=== PATIENT | female | born 1965 | race Caucasian/White ===

== ENCOUNTER 2016-09-05 03:28 | Emergency (ER) | payer MEDICAID ==
[~2016-09-05] VITALS: Ht 165.1 cm; Wt 94.8 kg
[~2016-09-05 03:28] MED LIST: ALBU0.084; ALBU18; CARI-277 PO; GABA100C; LAM100T; LORA-622 PO; MONT10TA23; NOR10T; PALI234I; RIVA20TA PO; ZOLP-158
[2016-09-05] MEDS ORDERED: methylPREDNISolone SOD SUCC 125 MG/2 ML VL IV ONE (04:00)
[2016-09-05 04:44] LABS: Basophils # (auto) 0.1 uL; Basophils % (auto) 0.4 % (0.0-2.0); Eosinophils # (auto) 0.3 uL; Eosinophils % (auto) 2.4 % (0.0-7.0); Hematocrit 32.7 % (36.0-46.0); Hemoglobin 10.8 g/dL (12.2-16.2); Lymphocytes # (auto) 2.4 uL; Lymphocytes % (auto) 17.6 % (10.0-50.0); Mean Corpuscular Hemoglobin 31.3 pg (28.0-32.0); Mean Corpuscular Hgb Conc. 33.1 g/dL (32.0-36.0); Mean Corpuscular Volume 94.3 fL (80.0-100.0); Mean Platelet Volume 7.4 fL (7.4-10.4); Monocytes # (auto) 1.1 uL; Monocytes % (auto) 8.1 % (0.0-12.0); Neutrophils # (auto) 9.7 uL; Neutrophils % (auto) 71.5 % (37.0-80.0); Platelet Count (auto) 269 10^3/uL (140-450); Red Cell Distribution Width 15.1 % (11.6-16.0); White Blood Cell 13.6 10^3/uL (4.4-10.8)
[2016-09-05 04:53] LABS: Albumin 2.9 g/dL (3.4-5.0); BUN/Creatinine Ratio 11.7; Calcium 8.5 mg/dL (8.5-10.1); Potassium 3.7 mmol/L (3.5-5.1)
[2016-09-05 04:56] LABS: Bilirubin, Total 0.3 mg/dL (0.2-1.0); Total Protein 6.9 g/dL (6.4-8.2)
[2016-09-05 05:00] LABS: INR 1.01 (0.9-1.15); Partial Thromboplastin Time 30.1 sec (22.64-33.71); Prothrombin Time 10.4 sec (9.37-12.3)
[2016-09-05 05:10] LABS: B-Type Natriuretic Peptide 38.78 pg/mL (0-100)
[2016-09-05 05:42] VITALS: BP 93/68
== END 2016-09-05 06:18 | disposition home or self-care (01) ==
LOC: ER 03:35
DX: J20.9 Acute bronchitis, unspecified (principal); D72.829 Elevated white blood cell count, unspecified; J44.9 Chronic obstructive pulmonary disease, unspecified; J45.909 Unspecified asthma, uncomplicated; M54.9 Dorsalgia, unspecified; G89.29 Other chronic pain; F17.210 Nicotine dependence, cigarettes, uncomplicated
CPT/HCPCS: 36415; 71010; 80053; 83880; 84484; 85025; 85379; 85610; 85730; 93005; 96374; 99285; J2930

== ENCOUNTER 2016-10-06 14:49 | Inpatient (IN) | payer MEDICAID ==
[~2016-10-06] VITALS: Ht 167.6 cm; Wt 95.9 kg
[2016-10-06 15:53] LABS: Albumin 3.4 g/dL (3.4-5.0); BUN/Creatinine Ratio 11.3; Bilirubin, Total 0.3 mg/dL (0.2-1.0); Calcium 8.9 mg/dL (8.5-10.1); Total Protein 6.7 g/dL (6.4-8.2)
[2016-10-06] MEDS ORDERED: ALBUTEROL SULF 2.5 MG/0.5ML(0.5%) NEB SOLN NEB STA (17:04)
[2016-10-06] MEDS ORDERED: IPRATROPIUM BROM 0.5 MG/2.5ML INH SOL NEB ONE (17:15)
[2016-10-06] MEDS ORDERED: cefTRIAXone 1GM/50ML D5W 50 ML IV ONE (17:15)
[2016-10-06] MEDS ORDERED: methylPREDNISolone SOD SUCC 125 MG/2 ML VL IV ONE (17:15)
[2016-10-06 17:33] LABS: Urine Bilirubin Negative (Negative); Urine Blood Negative /uL (Negative); Urine Color Yellow (Yellow); Urine Glucose Normal (Normal); Urine Ketone Negative (Negative); Urine Mucus FEW (None Seen); Urine Nitrite Negative (Negative); Urine RBC 1 /hpf (0 - 4); Urine Squamous Epithelial Cell FEW /hpf (<5); Urine Urobilinogen Normal (Negative)
[2016-10-06] MEDS ORDERED: HYDROcodone-ACET 10/325MG TAB PO ONE (18:00)
[2016-10-06 18:17] LABS: Basophils # (auto) 0.1 uL; Basophils % (auto) 0.6 % (0.0-2.0); Eosinophils # (auto) 0.6 uL; Eosinophils % (auto) 6.9 % (0.0-7.0); Hematocrit 39.9 % (36.0-46.0); Hemoglobin 12.5 g/dL (12.2-16.2); Lymphocytes # (auto) 2.6 uL; Lymphocytes % (auto) 31.3 % (10.0-50.0); Mean Corpuscular Hemoglobin 29.5 pg (28.0-32.0); Mean Corpuscular Hgb Conc. 31.2 g/dL (32.0-36.0); Mean Corpuscular Volume 94.3 fL (80.0-100.0); Mean Platelet Volume 8.3 fL (7.4-10.4); Monocytes # (auto) 0.6 uL; Monocytes % (auto) 7.3 % (0.0-12.0); Neutrophils # (auto) 4.5 uL; Neutrophils % (auto) 53.9 % (37.0-80.0); Platelet Count (auto) 340 10^3/uL (140-450); Red Cell Distribution Width 16.1 % (11.6-16.0); White Blood Cell 8.4 10^3/uL (4.4-10.8)
[2016-10-06 18:34] LABS: B-Type Natriuretic Peptide 6.47 pg/mL (0-100)
[2016-10-06 19:20] LABS: Temperature: 21.9 C (20.0-25.0)
[2016-10-06] MEDS ORDERED: ONDANSETRON HCL 4 MG/2 ML VIAL IV PRN (21:00)
[2016-10-06] MEDS ORDERED: ACETAMINOPHEN 325 MG TAB PO PRN (21:00)
[2016-10-06 21:15] VITALS: BP 126/78
[2016-10-06] MEDS: FAMOTIDINE 20 MG TAB PO SCH (21:24)
[2016-10-06] MEDS: ENOXAPARIN SOD 40 MG/0.4 ML SYRINGE SC SCH (21:24)
[2016-10-06] MEDS: methylPREDNISolone SOD SUCC 125 MG/2 ML VL IV SCH (21:25)
[2016-10-06 22:00] VITALS: BP 128/84
[2016-10-06] MEDS: HYDROcodone-ACET 5/325MG TAB PO PRN (22:38)
[2016-10-06] MEDS: ALBUTEROL SULF 2.5 MG/0.5ML(0.5%) NEB SOLN NEB PRN (23:11)
[2016-10-06] MEDS: IPRATROPIUM BROM 0.5 MG/2.5ML INH SOL NEB PRN (23:11)
[2016-10-07 05:00] VITALS: BP 111/66
[2016-10-07 06:57] LABS: Basophils # (auto) 0.1 uL; Basophils % (auto) 1.8 % (0.0-2.0); Eosinophils # (auto) 0 uL; Hemoglobin 12.6 g/dL (12.2-16.2); Lymphocytes # (auto) 1.2 uL; Lymphocytes % (auto) 15.4 % (10.0-50.0); Mean Corpuscular Hemoglobin 29.7 pg (28.0-32.0); Mean Corpuscular Hgb Conc. 31.4 g/dL (32.0-36.0); Mean Corpuscular Volume 94.6 fL (80.0-100.0); Mean Platelet Volume 7.6 fL (7.4-10.4); Monocytes # (auto) 0 uL; Monocytes % (auto) 0.5 % (0.0-12.0); Neutrophils # (auto) 6.5 uL; Neutrophils % (auto) 82.3 % (37.0-80.0); Platelet Count (auto) 302 10^3/uL (140-450); White Blood Cell 7.8 10^3/uL (4.4-10.8)
[2016-10-07 07:09] LABS: Albumin 3.3 g/dL (3.4-5.0); BUN/Creatinine Ratio 13.4; Bilirubin, Total 0.2 mg/dL (0.2-1.0); Calcium 8.9 mg/dL (8.5-10.1); Potassium 4.6 mmol/L (3.5-5.1); Total Protein 7.1 g/dL (6.4-8.2)
[2016-10-07] MEDS: ALBUTEROL SULF 2.5 MG/0.5ML(0.5%) NEB SOLN NEB PRN (08:09)
[2016-10-07] MEDS: IPRATROPIUM BROM 0.5 MG/2.5ML INH SOL NEB PRN (08:09)
[2016-10-07 08:35] VITALS: BP 126/74
[2016-10-07] MEDS: ENOXAPARIN SOD 40 MG/0.4 ML SYRINGE SC SCH (09:27)
[2016-10-07] MEDS: methylPREDNISolone SOD SUCC 125 MG/2 ML VL IV SCH (09:27)
[2016-10-07] MEDS: HYDROcodone-ACET 5/325MG TAB PO PRN ×3 (09:49→21:26)
[2016-10-07] MEDS: FAMOTIDINE 20 MG TAB PO SCH ×2 (11:50→21:26)
[2016-10-07 12:28] VITALS: BP 101/64
[2016-10-07 16:52] VITALS: BP 133/86
[2016-10-07] MEDS ORDERED: methylPREDNISolone SOD SUCC 40 MG/ML VL IV SCH (19:53)
[2016-10-07 20:00] VITALS: BP 139/69
[2016-10-07] MEDS: NICOTINE 21MG/24 HR TOPICAL PATCH TD SCH (21:27)
[2016-10-07] MEDS: CARISOPRODOL 350 MG TAB PO SCH (21:42)
[2016-10-07] MEDS: lamoTRIgine 100 MG TAB PO SCH (21:42)
[2016-10-07] MEDS: ZOLPIDEM TARTRATE 5 MG TAB PO PRN (21:44)
[2016-10-07 22:07] VITALS: BP 139/69
[2016-10-08] MEDS: methylPREDNISolone SOD SUCC 40 MG/ML VL IV SCH ×4 (02:46→22:08)
[2016-10-08 05:12] VITALS: BP 132/87
[2016-10-08 06:17] LABS: Basophils # (auto) 0.3 uL; Basophils % (auto) 1.3 % (0.0-2.0); Eosinophils # (auto) 0 uL; Eosinophils % (auto) 0.2 % (0.0-7.0); Hematocrit 39.2 % (36.0-46.0); Hemoglobin 12.6 g/dL (12.2-16.2); Lymphocytes # (auto) 1.2 uL; Lymphocytes % (auto) 6.1 % (10.0-50.0); Mean Corpuscular Hemoglobin 30.4 pg (28.0-32.0); Mean Platelet Volume 7.5 fL (7.4-10.4); Monocytes # (auto) 0.1 uL; Monocytes % (auto) 0.6 % (0.0-12.0); Neutrophils # (auto) 18.3 uL; Neutrophils % (auto) 91.8 % (37.0-80.0); Platelet Count (auto) 331 10^3/uL (140-450); Red Cell Distribution Width 15.1 % (11.6-16.0); SUSPECT VIEW TRANSMISSION; White Blood Cell 19.9 10^3/uL (4.4-10.8)
[2016-10-08 06:41] LABS: Potassium 4.7 mmol/L (3.5-5.1)
[2016-10-08 06:45] LABS: Albumin 3.4 g/dL (3.4-5.0); BUN/Creatinine Ratio 24.1; Calcium 8.9 mg/dL (8.5-10.1)
[2016-10-08 06:48] LABS: Bilirubin, Total 0.2 mg/dL (0.2-1.0)
[2016-10-08] MEDS: ALBUTEROL SULF 2.5 MG/0.5ML(0.5%) NEB SOLN NEB PRN ×3 (09:01→22:45)
[2016-10-08] MEDS: IPRATROPIUM BROM 0.5 MG/2.5ML INH SOL NEB PRN ×3 (09:01→22:45)
[2016-10-08 09:29] VITALS: BP 126/73
[2016-10-08] MEDS: CARISOPRODOL 350 MG TAB PO SCH ×2 (10:19→22:08)
[2016-10-08] MEDS: ENOXAPARIN SOD 40 MG/0.4 ML SYRINGE SC SCH (10:19)
[2016-10-08] MEDS: FAMOTIDINE 20 MG TAB PO SCH ×2 (10:19→22:08)
[2016-10-08] MEDS: NICOTINE 21MG/24 HR TOPICAL PATCH TD SCH (10:19)
[2016-10-08 12:24] VITALS: BP 116/76
[2016-10-08 16:13] VITALS: BP 120/87
[2016-10-08] MEDS: HYDROcodone-ACET 5/325MG TAB PO PRN (18:57)
[2016-10-08 20:00] VITALS: BP 109/71
[2016-10-08 22:00] VITALS: BP 109/71
[2016-10-08] MEDS: ZOLPIDEM TARTRATE 5 MG TAB PO PRN (22:08)
[2016-10-08] MEDS: lamoTRIgine 100 MG TAB PO SCH (22:08)
[2016-10-09 05:06] VITALS: BP 116/75
[2016-10-09] MEDS: methylPREDNISolone SOD SUCC 40 MG/ML VL IV SCH ×2 (05:59→14:00)
[2016-10-09 06:41] LABS: DEFINITIVE VIEW TRANSMISSION; Hematocrit 39.8 % (36.0-46.0); Hemoglobin 12.4 g/dL (12.2-16.2); Mean Corpuscular Hemoglobin 29.5 pg (28.0-32.0); Mean Corpuscular Hgb Conc. 31.2 g/dL (32.0-36.0); Mean Corpuscular Volume 94.5 fL (80.0-100.0); Mean Platelet Volume 7.4 fL (7.4-10.4); Platelet Count (auto) 314 10^3/uL (140-450); SUSPECT VIEW TRANSMISSION; White Blood Cell 18.2 10^3/uL (4.4-10.8)
[2016-10-09 07:05] LABS: Albumin 3.1 g/dL (3.4-5.0); BUN/Creatinine Ratio 21.9; Calcium 8.7 mg/dL (8.5-10.1); Potassium 4.1 mmol/L (3.5-5.1)
[2016-10-09 07:07] LABS: Bilirubin, Total 0.1 mg/dL (0.2-1.0); Total Protein 6.7 g/dL (6.4-8.2)
[2016-10-09 07:12] LABS: Metamyelocytes % 0; Myelocytes % 0; Promyelocytes % 0; Reactive Lymphocytes 0
[2016-10-09 08:30] VITALS: BP 124/82
[2016-10-09] MEDS: FAMOTIDINE 20 MG TAB PO SCH (09:26)
[2016-10-09] MEDS: CARISOPRODOL 350 MG TAB PO SCH (09:26)
[2016-10-09] MEDS: NICOTINE 21MG/24 HR TOPICAL PATCH TD SCH (09:26)
[2016-10-09] MEDS: ENOXAPARIN SOD 40 MG/0.4 ML SYRINGE SC SCH (09:26)
[2016-10-09 10:43] LABS: Platelet Estimate Adequate
[2016-10-09] MEDS: HYDROcodone-ACET 5/325MG TAB PO PRN (12:35)
[2016-10-09 13:00] VITALS: BP 129/79
== END 2016-10-09 15:50 | disposition home or self-care (01) | DRG 140 ==
LOC: EDUNIT# 14:49 → ER 14:51 → OVERFLOW 14:52 → WEST WING 21:56
PROVIDERS: ADMIT Internal Medicine; ATTEND Internal Medicine
DX: J44.1 Chronic obstructive pulmonary disease with (acute) exacerbation (principal); J96.20 Acute and chronic respiratory failure, unspecified whether with hypoxia or hypercapnia; Z99.81 Dependence on supplemental oxygen; E88.09 Other disorders of plasma-protein metabolism, not elsewhere classified; E66.9 Obesity, unspecified; F41.9 Anxiety disorder, unspecified; F17.210 Nicotine dependence, cigarettes, uncomplicated; J45.909 Unspecified asthma, uncomplicated; Z80.1 Family history of malignant neoplasm of trachea, bronchus and lung; Z82.49 Family history of ischemic heart disease and other diseases of the circulatory system; Z80.9 Family history of malignant neoplasm, unspecified; Z88.6 Allergy status to analgesic agent; Z68.34 Body mass index [BMI] 34.0-34.9, adult
CPT/HCPCS: 36415; 71010; 80053; 81001; 83605; 83735; 83880; 84484; 85007; 85025; 85027; 87040; 93005; 94640; 94761; 96365; 96375; J0696

== ENCOUNTER 2018-07-06 19:04 | Emergency (ER) | payer MEDICAID ==
[~2018-07-06] VITALS: Ht 172.7 cm; Wt 92.5 kg
[~2018-07-06 19:04] MED LIST changes: -ALBU0.084; -GABA100C
[2018-07-06 19:07] VITALS: BP 128/92
[2018-07-06 20:07] LABS: Basophils # (auto) 0.1 uL; Basophils % (auto) 1.3 % (0.0-2.0); Eosinophils # (auto) 0.6 uL; Eosinophils % (auto) 7.1 % (0.0-7.0); Hematocrit 39.5 % (36.0-46.0); Hemoglobin 13.3 g/dL (12.2-16.2); Lymphocytes # (auto) 3.5 uL; Lymphocytes % (auto) 42.3 % (10.0-50.0); Mean Corpuscular Hgb Conc. 33.6 g/dL (32.0-36.0); Mean Corpuscular Volume 95.3 fL (80.0-100.0); Monocytes # (auto) 0.8 uL; Neutrophils # (auto) 3.4 uL; Neutrophils % (auto) 40.3 % (37.0-80.0); Nucleated Red Blood Cells % 0.1 %; Platelet Count (auto) 299 10^3/uL (140-450); Red Blood Cells 4.15 10^6/uL (4.0-5.20); Red Cell Distribution Width 13.9 % (11.8-14.3); White Blood Cell 8.4 10^3/uL (4.4-10.8)
[2018-07-06 20:21] LABS: Albumin 3.4 g/dL (3.4-5.0); Anion Gap 10 (5-15); Blood Urea Nitrogen 8 mg/dL (7-18); Calcium 8.5 mg/dL (8.5-10.1); Carbon Dioxide 27 mmol/L (21-32); Chloride 104 mmol/L (98-107); Glucose 107 mg/dL (74-106); Potassium 3.5 mmol/L (3.5-5.1); Sodium 141 mmol/L (136-145)
[2018-07-06 20:24] LABS: Alanine Aminotransferase 17 U/L (13-56); Aspartate Aminotransferase 13 U/L (15-37); BUN/Creatinine Ratio 8.5; GFR African American 80 mL/min; GFR Non-African American 66 mL/min
[2018-07-06 20:29] LABS: Alkaline Phosphatase 63 U/L (45-117); Bilirubin, Total 0.2 mg/dL (0.2-1.0); Total Protein 6.9 g/dL (6.4-8.2)
== END 2018-07-06 22:29 | disposition left against medical advice (07) ==
LOC: ER 19:06
DX: R20.0 Anesthesia of skin (principal); Z53.21 Procedure and treatment not carried out due to patient leaving prior to being seen by health care provider
CPT/HCPCS: 36415; 71046; 80053; 84484; 85025; 93005

== ENCOUNTER 2020-06-22 03:24 | Inpatient (IN) | payer OTHER, MEDICAID ==
[~2020-06-22] VITALS: Ht 172.7 cm; Wt 72.8 kg
[2020-06-22] MEDS ORDERED: CEFTRIAXONE SODIUM 2 GM in D5W 5% 50 ML IV ONE ×2 (04:15→05:00)
[2020-06-22] MEDS ORDERED: diphenhdrAMINE HCL 50 MG/1 ML VL IV ONE (04:15)
[2020-06-22] MEDS ORDERED: methylPREDNISolone SOD SUCC 125 MG/2 ML VL IV ONE (04:15)
[2020-06-22 04:40] LABS: Basophils # (auto) 0 10 ^3/uL (0-0.2); Basophils % (auto) 0.5 % (0.0-2.0); Eosinophils # (auto) 0.6 10 ^3/uL (0-0.8); Eosinophils % (auto) 6.1 % (0.0-7.0); Hematocrit 38.3 % (36.0-46.0); Lymphocytes # (auto) 2.8 10 ^3/uL (0.4-5.4); Lymphocytes % (auto) 27.4 % (10.0-50.0); Mean Corpuscular Hemoglobin 32.2 pg (28.0-32.0); Mean Corpuscular Hgb Conc. 33.9 g/dL (32.0-36.0); Mean Corpuscular Volume 94.8 fL (80.0-100.0); Monocytes # (auto) 0.8 10 ^3/uL (0-1.3); Neutrophils # (auto) 5.8 10 ^3/uL (1.6-8.6); Nucleated Red Blood Cells % 0.1 %; Platelet Count (auto) 322 10^3/uL (140-450); Red Blood Cells 4.04 10^6/uL (4.0-5.20); Red Cell Distribution Width 14.5 % (11.8-14.3); White Blood Cell 10.1 10^3/uL (4.4-10.8)
[2020-06-22 04:51] LABS: Chloride 105 mmol/L (98-107); Potassium 3.9 mmol/L (3.5-5.1); Sodium 139 mmol/L (136-145)
[2020-06-22 04:55] LABS: INR 0.96 (0.9-1.15); Partial Thromboplastin Time 29.6 sec (23.0-31.2)
[2020-06-22] MEDS ORDERED: cefTRIAXone SOD 1,000 MG VL ONE (05:01)
[2020-06-22 05:02] LABS: Alanine Aminotransferase 17 U/L (13-56); Albumin 3.4 g/dL (3.4-5.0); Alkaline Phosphatase 60 U/L (45-117); Anion Gap 7 (5-15); Aspartate Aminotransferase 11 U/L (15-37); BUN/Creatinine Ratio 12.3; Bilirubin, Total 0.2 mg/dL (0.2-1.0); Blood Urea Nitrogen 13 mg/dL (7-18); Calcium 8.7 mg/dL (8.5-10.1); Carbon Dioxide 27 mmol/L (21-32); GFR African American 69 mL/min; GFR Non-African American 57 mL/min; Glucose 98 mg/dL (74-106); Total Protein 6.8 g/dL (6.4-8.2)
[2020-06-22] MEDS ORDERED: NITROGLYCERIN 0.4 MG SL TAB SL PRN (06:30)
[2020-06-22] MEDS ORDERED: ONDANSETRON HCL 4 MG/2 ML VIAL IV PRN (06:30)
[2020-06-22] MEDS ORDERED: ACETAMINOPHEN 325 MG TAB PO PRN (06:30)
[2020-06-22] MEDS ORDERED: DOCUSATE SOD 100 MG CAP PO PRN (06:30)
[2020-06-22] MEDS ORDERED: ALBUTEROL SULF 2.5 MG/0.5ML(0.5%) NEB SOLN NEB PRN (06:30)
[2020-06-22] MEDS ORDERED: MORPHINE SULF INJ 2 MG/ML SYRINGE 1ML IV PRN ×2 (06:30→08:15)
[2020-06-22 07:16] VITALS: BP 117/60
[2020-06-22] MEDS: methylPREDNISolone SOD SUCC 40 MG/ML VL IV SCH ×2 (09:30→22:08)
[2020-06-22] MEDS: FAMOTIDINE 20 MG TAB PO SCH ×2 (09:31→22:09)
[2020-06-22] MEDS: MULTIPLE VITAMIN TAB PO SCH (09:31)
[2020-06-22] MEDS: ASCORBIC ACID 500 MG TAB PO SCH ×2 (09:32→22:09)
[2020-06-22] MEDS ORDERED: ZINC SULFATE 220mg CAP or TAB PO SCH (10:00)
[2020-06-22] MEDS: ENOXAPARIN SOD 40 MG/0.4 ML SYRINGE SC SCH (10:55)
--- NOTE | 2020-06-22 13:00 | NUR ---
Telemetry admit from ER: FAMYULI admitted to Telemetry unit after SBAR received. Patient oriented to GEE HARRIS, RN primary RN, unit, room, bed, and unit policies regarding patient care and visiting hours. Patient now on continuous telemetry monitoring. Patient placed on bedside oxygen AT 8 LPM, weighed by bedscale and encouraged to call if they need something. All questions and concerns addressed, patient verbalized understanding.
[2020-06-22] MEDS ORDERED: IPRIH INH (13:38)
[2020-06-22] MEDS ORDERED: PAR20T PO (13:38)
[2020-06-22] MEDS ORDERED: APIX5TAB PO (13:38)
[2020-06-22] MEDS ORDERED: TRAZ100T3 PO (13:38)
[2020-06-22] MEDS ORDERED: ENAL10TA13 PO (13:38)
[2020-06-22] MEDS ORDERED: ALBUAER3 INH (13:38)
[2020-06-22] MEDS ORDERED: PNEUMOCOCCAL VACC POLYS 25 MCG/0.5 ML VIAL IM ONE (13:45)
[2020-06-22 14:00] VITALS: BP 100/66
[2020-06-22] MEDS ORDERED: NICOTINE 21MG/24 HR TOPICAL PATCH TD ONE (15:00)
[2020-06-22] MEDS: SODIUM CHLOR 0.9% PF (SALINE LOCK) 10ML VIAL/SYR IV SCH ×2 (15:38→22:08)
--- NOTE | 2020-06-22 16:11 | NUR ---
PAGED DR. ESPINOZA AT THIS TIME REGARDING POSITIVE DVT. AWAITING CALL BACK.
[2020-06-22 16:37] VITALS: BP 100/62
[2020-06-22] MEDS: SODIUM CHLORIDE 0.9% 1,000 ML IV SCH (17:16)
[2020-06-22] MEDS: HYDROcodone-ACET 5/325MG TAB PO PRN ×2 (17:51→22:11)
--- NOTE | 2020-06-22 18:39 | NUR ---
RESPIRATORY PAGED AT THIS TIME.
[2020-06-22] MEDS: IPRATROPIUM BROM 0.5 MG/2.5ML INH SOL NEB SCH ×2 (18:43→22:27)
[2020-06-22] MEDS: ALBUTEROL SULF 2.5 MG/0.5ML(0.5%) NEB SOLN NEB SCH ×2 (18:44→22:27)
--- NOTE | 2020-06-22 18:47 | NUR ---
CLOSING NOTE: PATIENT RESTING IN BED. AWAITING RESPIRATORY THERAPY. CARE ENDORSED.
[2020-06-22 22:00] VITALS: BP 112/69
[2020-06-22] MEDS: traZODone HCL 50 MG TAB PO SCH (22:09)
[2020-06-23] MEDS: ALBUTEROL SULF 2.5 MG/0.5ML(0.5%) NEB SOLN NEB SCH ×6 (02:10→22:09)
[2020-06-23] MEDS: IPRATROPIUM BROM 0.5 MG/2.5ML INH SOL NEB SCH ×6 (02:10→22:09)
[2020-06-23 05:00] VITALS: BP 109/69
[2020-06-23] MEDS: SODIUM CHLOR 0.9% PF (SALINE LOCK) 10ML VIAL/SYR IV SCH ×3 (06:00→21:34)
--- NOTE | 2020-06-23 06:29 | NUR ---
Respiratory note: SCHEDULED MED NEB TX NOT GIVEN. PT WAS ASLEEP AND STATED SHE WOULD LIKE TO SKIP TX AT THIS TIME. NO RESP DISTRESS NOTED. HR 86, RR 18, SPO2 98% ON 8L SIMPLE MASK. TITRATED FIO2 TO 6L. BS ARE CLEAR AND DIMINISHED.
--- NOTE | 2020-06-23 07:20 | NUR ---
Opening Shift Note: Assumed care of patient, awake and alert. No S/S of distress/SOB or pain. Patient currently on 8 LPM simple mask, O2 sats at this time are 95%. Bed in lowest locked position, side rails up x 2, call light within reach. Patient instructed on POC and to call for assist PRN, will continue to monitor for changes Q1hr and PRN.
[2020-06-23 07:27] LABS: Basophils # (auto) 0.1 10 ^3/uL (0-0.2); Basophils % (auto) 0.9 % (0.0-2.0); Eosinophils # (auto) 0 10 ^3/uL (0-0.8); Hematocrit 38.5 % (36.0-46.0); Hemoglobin 12.7 g/dL (12.2-16.2); Lymphocytes # (auto) 1.4 10 ^3/uL (0.4-5.4); Lymphocytes % (auto) 8.9 % (10.0-50.0); Mean Corpuscular Hemoglobin 31.6 pg (28.0-32.0); Mean Corpuscular Hgb Conc. 33.1 g/dL (32.0-36.0); Mean Corpuscular Volume 95.4 fL (80.0-100.0); Monocytes # (auto) 0.5 10 ^3/uL (0-1.3); Monocytes % (auto) 3.5 % (0.0-12.0); Neutrophils # (auto) 13.4 10 ^3/uL (1.6-8.6); Neutrophils % (auto) 86.7 % (37.0-80.0); Nucleated Red Blood Cells % 0.1 %; Platelet Count (auto) 333 10^3/uL (140-450); Red Blood Cells 4.03 10^6/uL (4.0-5.20); Red Cell Distribution Width 14.2 % (11.8-14.3); White Blood Cell 15.5 10^3/uL (4.4-10.8)
[2020-06-23 07:39] LABS: Albumin 3.2 g/dL (3.4-5.0); BUN/Creatinine Ratio 20.7; Calcium 8.5 mg/dL (8.5-10.1); Potassium 4.5 mmol/L (3.5-5.1)
[2020-06-23 07:43] LABS: Bilirubin, Total 0.2 mg/dL (0.2-1.0)
[2020-06-23 08:54] VITALS: BP 112/68
[2020-06-23] MEDS: cefTRIAXone 1GM/50ML D5W 50 ML IV SCH (09:37)
[2020-06-23] MEDS: ENOXAPARIN SOD 40 MG/0.4 ML SYRINGE SC SCH (09:38)
[2020-06-23] MEDS: MULTIPLE VITAMIN TAB PO SCH (09:38)
[2020-06-23] MEDS: FAMOTIDINE 20 MG TAB PO SCH ×2 (09:38→21:35)
[2020-06-23] MEDS: ASCORBIC ACID 500 MG TAB PO SCH ×2 (09:38→21:35)
[2020-06-23] MEDS: PARoxetine 20 MG TAB PO SCH (09:38)
[2020-06-23] MEDS: methylPREDNISolone SOD SUCC 40 MG/ML VL IV SCH ×2 (09:38→21:35)
[2020-06-23] MEDS: NICOTINE 21MG/24 HR TOPICAL PATCH TD SCH (09:39)
--- NOTE | 2020-06-23 10:10 | NUR ---
Respiratory note: TOOK PATIENT OFF SIMPLE MASK AND PLACED ON A 3L N/C.
[2020-06-23] MEDS: SODIUM CHLORIDE 0.9% 1,000 ML IV SCH (11:43)
[2020-06-23 12:26] VITALS: BP 126/74
[2020-06-23] MEDS: HYDROcodone-ACET 5/325MG TAB PO PRN ×2 (13:53→20:30)
[2020-06-23 16:53] VITALS: BP 125/72
--- NOTE | 2020-06-23 18:48 | NUR ---
CLOSING NOTE: PATIENT RESTING IN BED. NO S/S OF DISTRESS. CARE ENDORSED.
--- NOTE | 2020-06-23 19:20 | NUR ---
Opening Shift Note Assumed care of patient, awake and alert. No S/S of distress/SOB or pain. Patient eating dinner. Instructed on POC and to call for assist PRN, will continue to monitor for changes Q1hr and PRN.
[2020-06-23 20:00] VITALS: BP 114/58
[2020-06-23 21:00] VITALS: BP 114/58
[2020-06-23] MEDS: APIXABAN 5 MG TAB PO SCH (21:35)
[2020-06-23] MEDS: traZODone HCL 50 MG TAB PO SCH (21:35)
[2020-06-24] MEDS: ALBUTEROL SULF 2.5 MG/0.5ML(0.5%) NEB SOLN NEB SCH ×3 (02:00→10:36)
[2020-06-24] MEDS: IPRATROPIUM BROM 0.5 MG/2.5ML INH SOL NEB SCH ×3 (02:00→10:36)
[2020-06-24 05:00] VITALS: BP 110/65
[2020-06-24] MEDS: SODIUM CHLOR 0.9% PF (SALINE LOCK) 10ML VIAL/SYR IV SCH (06:05)
[2020-06-24] MEDS: SODIUM CHLORIDE 0.9% 1,000 ML IV SCH (06:34)
--- NOTE | 2020-06-24 07:25 | NUR ---
Opening Shift Note: Assumed care of patient. Patient asleep at this time. No S/S of distress/SOB or pain. Respirations even and unlabored. Bed in lowest locked position, side rails up x 2, call light within reach. Patient will be instructed on POC and to call for assist PRN, will continue to monitor for changes Q1hr and PRN.
[2020-06-24 09:36] VITALS: BP 134/84
[2020-06-24] MEDS: cefTRIAXone 1GM/50ML D5W 50 ML IV SCH (09:38)
[2020-06-24] MEDS: methylPREDNISolone SOD SUCC 40 MG/ML VL IV SCH (09:38)
[2020-06-24] MEDS: FAMOTIDINE 20 MG TAB PO SCH (09:39)
[2020-06-24] MEDS: MULTIPLE VITAMIN TAB PO SCH (09:39)
[2020-06-24] MEDS: PARoxetine 20 MG TAB PO SCH (09:39)
[2020-06-24] MEDS: APIXABAN 5 MG TAB PO SCH (09:39)
[2020-06-24] MEDS: ASCORBIC ACID 500 MG TAB PO SCH (09:40)
[2020-06-24] MEDS: NICOTINE 21MG/24 HR TOPICAL PATCH TD SCH (09:40)
[2020-06-24] MEDS ORDERED: ENALAPRIL MALEATE 10 MG TAB PO SCH (10:00)
--- NOTE | 2020-06-24 11:20 | NUR ---
:AMA Note YULI OTTO states they want to leave the hospital Against Medical Advice (AMA). Patient encouraged to stay for further treatment/stabilization. SHAIKH CHRISTOPHER notified of patient's wishes. Patient advised of the risks and benefits of leaving AMA. Patient verbalized understanding. Patient encouraged to return to the ER if symptoms do not improve or worsen. IV REMOVED, TELE BOX REMOVED.
== END 2020-06-24 11:00 | disposition left against medical advice (07) | DRG 189 ==
LOC: EDBD 03:24 → ER 03:24 → TELE 03:25 → TELE-WESTW 13:02
PROVIDERS: ADMIT Nurse Practitioner Family; ATTEND Nurse Practitioner Family
PROC: 5A09357 Assistance with Respiratory Ventilation, Less than 24 Consecutive Hours, Continuous Positive Airway Pressure (ICD-10-PCS; principal; 2020-06-22)
DX: J96.20 Acute and chronic respiratory failure, unspecified whether with hypoxia or hypercapnia (principal); N17.0 Acute kidney failure with tubular necrosis; J44.1 Chronic obstructive pulmonary disease with (acute) exacerbation; J44.0 Chronic obstructive pulmonary disease with (acute) lower respiratory infection; J20.9 Acute bronchitis, unspecified; F41.9 Anxiety disorder, unspecified; F17.210 Nicotine dependence, cigarettes, uncomplicated; T38.0X5A Adverse effect of glucocorticoids and synthetic analogues, initial encounter; J32.9 Chronic sinusitis, unspecified; F15.90 Other stimulant use, unspecified, uncomplicated; Z20.828 Contact with and (suspected) exposure to other viral communicable diseases; Y92.89 Other specified places as the place of occurrence of the external cause; Z82.5 Family history of asthma and other chronic lower respiratory diseases; Z80.1 Family history of malignant neoplasm of trachea, bronchus and lung; Z86.718 Personal history of other venous thrombosis and embolism; Z71.6 Tobacco abuse counseling; Z88.6 Allergy status to analgesic agent; Z88.8 Allergy status to other drugs, medicaments and biological substances
CPT/HCPCS: 36415; 70486; 71045; 71250; 80053; 83880; 84484; 84702; 85025; 85379; 85610; 85730; 87426; 93005; 93306; 93970; 94640; 96365; 96372; 96375; G0378; J0696; J7060

== ENCOUNTER 2020-07-06 05:25 | Emergency (ER) | payer OTHER, MEDICAID ==
[~2020-07-06] VITALS: Ht 165.1 cm; Wt 104.3 kg
[~2020-07-06 05:25] MED LIST changes: -ALBU18; +ALBUAER3 INH; +APIX5TAB PO; +ENAL10TA13 PO; +IPRIH INH; -LORA-622 PO; -MONT10TA23; +PAR20T PO; -RIVA20TA PO; +TRAZ100T3 PO; -ZOLP-158
[2020-07-06] MEDS ORDERED: CALCIUM CHLOR(10%) 100MG/ML 10ML SYRINGE IV ONE (05:26)
[2020-07-06] MEDS ORDERED: EPINEPHrine HCL 1 MG/10 ML SYRG IV ONE (05:26)
[2020-07-06] MEDS ORDERED: SODIUM BICARBONATE 8.4% INJ 50ML SYRINGE IV ONE (05:26)
[2020-07-06 05:36] VITALS: BP 0/0
== END 2020-07-06 05:47 | disposition expired ==
LOC: EDBD 05:25 → ER 05:25
DX: I46.9 Cardiac arrest, cause unspecified (principal); J44.9 Chronic obstructive pulmonary disease, unspecified; Z88.6 Allergy status to analgesic agent
CPT/HCPCS: 92950; 99285; J0171